=== PATIENT | female | born 1965 | race Caucasian/White ===

== ENCOUNTER 2017-12-29 23:20 | Inpatient (IN) | payer BC ==
[~2017-12-29] VITALS: Ht 157.5 cm; Wt 65.3 kg
[2017-12-29 23:33] VITALS: Ht 157.5 cm; Wt 65.3 kg
[2017-12-30] VITALS (7 sets, daily range): BP systolic 129–175; BP diastolic 83–95
[2017-12-30 00:09] LABS: BASOPHIL % 0.3 % (0-2); PLATELET COUNT 198 x10^3mcL (130-400)
[2017-12-30 00:13] LABS: RED CELL DISTRIBUTION WIDTH 17.4 % (11.5-14.5)
[2017-12-30 00:17] LABS: CALCIUM 9.2 mg/dL (8.5-10.1); CHLORIDE SERUM 105 mmol/L (98-107); CREATININE SERUM 0.6 mg/dL (0.6-1.0); GFR1 > 60 mL/min; GLUCOSE SERUM 128 mg/dL (74-106); POTASSIUM SERUM 3.5 mmol/L (3.5-5.1); SODIUM SERUM 141 mmol/L (136-145)
[2017-12-30 00:22] LABS: ALBUMIN 3.6 g/dL (3.4-5.0); ALKALINE PHOSPHATASE 90 U/L (46-116); ALT/SGPT 20 U/L (14-59); AST/SGOT 17 U/L (15-37); BILIRUBIN TOTAL 0.5 mg/dL (0.20-1.00); TOTAL PROTEIN, SERUM 7.5 g/dL (6.4-8.2)
[2017-12-30 03:46] LABS: MAGNESIUM 2.4 mg/dL (1.8-2.4); PHOSPHOROUS 3.7 mg/dL (2.5-4.9)
[2017-12-30 03:47] LABS: CHOLESTEROL/HDL RATIO 3.3
[2017-12-30 03:56] LABS: FREE T4 1.07 ng/dL (0.76-1.46); FREE THYROXINE INDEX 2.1 ug/dL (1.4-4.5); T4(THYROXINE) 5.6 ug/dL (4.7-13.3)
[2017-12-30 05:20] LABS: microscopic required? NO
[2017-12-30 05:36] LABS: urine erythrocyte NEGATIVE (NEGATIVE)
[2017-12-30 05:45] LABS: AMPHETAMINE QUAL UR NONE DETECTED (NEG <=1000)
[2017-12-30 10:37] LABS: T3 TOTAL 1.17 ng/mL
[2017-12-31 03:39] LABS: BASOPHIL % 0.4 % (0-2); PLATELET COUNT 186 x10^3mcL (130-400)
[2017-12-31 03:43] LABS: RED CELL DISTRIBUTION WIDTH 17.8 % (11.5-14.5)
[2017-12-31 05:33] VITALS: BP 1126/78
[2017-12-31 05:56] LABS: SODIUM SERUM 141 mmol/L (136-145)
[2017-12-31 05:57] LABS: CALCIUM 8.9 mg/dL (8.5-10.1); CARBON DIOXIDE 22.1 mmol/L (21-32); CHLORIDE SERUM 107 mmol/L (98-107); CREATININE SERUM 0.5 mg/dL (0.6-1.0); GFR1 > 60 mL/min; GLUCOSE SERUM 105 mg/dL (74-106); MAGNESIUM 2.3 mg/dL (1.8-2.4); PHOSPHOROUS 4.7 mg/dL (2.5-4.9); POTASSIUM SERUM 3.9 mmol/L (3.5-5.1)
[2017-12-31 10:13] VITALS: BP 146/90
[2017-12-31 18:23] VITALS: BP 134/89
[2017-12-31 22:08] VITALS: BP 145/88
[2018-01-01 05:02] VITALS: BP 135/78
[2018-01-01 06:41] LABS: BASOPHIL % 0.3 % (0-2); PLATELET COUNT 179 x10^3mcL (130-400)
[2018-01-01 06:42] LABS: RED CELL DISTRIBUTION WIDTH 17.6 % (11.5-14.5)
[2018-01-01 06:54] LABS: CALCIUM 8.7 mg/dL (8.5-10.1); CARBON DIOXIDE 24.6 mmol/L (21-32); CHLORIDE SERUM 106 mmol/L (98-107); CREATININE SERUM 0.6 mg/dL (0.6-1.0); GFR1 > 60 mL/min; GLUCOSE SERUM 97 mg/dL (74-106); PHOSPHOROUS 4.3 mg/dL (2.5-4.9); POTASSIUM SERUM 3.6 mmol/L (3.5-5.1); SODIUM SERUM 140 mmol/L (136-145)
[2018-01-01] MEDS ORDERED: TOPROL XL25 MG PO (08:09)
[2018-01-01] MEDS ORDERED: ASPIR 8181 MG PO (08:09)
[2018-01-01] MEDS ORDERED: PLA75 PO (08:09)
[2018-01-01] MEDS ORDERED: NITROGLYCERIN0.4 MG SL (08:09)
[2018-01-01] MEDS ORDERED: LIPITOR80 MG PO (08:09)
[2018-01-01 09:28] VITALS: BP 139/79
[2018-01-01 10:19] VITALS: BP 139/79
== END 2018-01-01 13:14 | disposition home or self-care (01) | DRG 286 ==
LOC: ED 23:20 → DU 12-30 01:34
PROVIDERS: Emergency Medicine; Family Medicine; Internal Medicine Interventional Cardiology
PROC: B2111ZZ Fluoroscopy of Multiple Coronary Arteries using Low Osmolar Contrast (ICD-10-PCS; 2017-12-31)
PROC: B2151ZZ Fluoroscopy of Left Heart using Low Osmolar Contrast (ICD-10-PCS; 2017-12-31)
PROC: 4A023N7 Measurement of Cardiac Sampling and Pressure, Left Heart, Percutaneous Approach (ICD-10-PCS; principal; 2017-12-31 13:00)
DX: I24.9 Acute ischemic heart disease, unspecified (principal); N17.0 Acute kidney failure with tubular necrosis; E78.5 Hyperlipidemia, unspecified; I10 Essential (primary) hypertension; E02 Subclinical iodine-deficiency hypothyroidism; F41.1 Generalized anxiety disorder; I16.0 Hypertensive urgency; E78.2 Mixed hyperlipidemia; R73.03 Prediabetes; Z88.0 Allergy status to penicillin; Z82.49 Family history of ischemic heart disease and other diseases of the circulatory system; Z83.3 Family history of diabetes mellitus; Z84.89 Family history of other specified conditions; Z72.89 Other problems related to lifestyle; I25.10 Atherosclerotic heart disease of native coronary artery without angina pectoris
CPT/HCPCS: CLHCL; 84439; C1760; C1769; C1894; J1644; J2001; J2250; J2405; J3010; J7030; J7040; Q0092; Q9967

== ENCOUNTER 2018-01-30 14:24 | Inpatient (IN) | payer BC ==
[~2018-01-30] VITALS: Ht 157.5 cm; Wt 64.0 kg
[~2018-01-30 14:24] MED LIST: ASPIR 8181 MG PO; LIPITOR80 MG PO; NITROGLYCERIN0.4 MG SL; PLA75 PO; TOPROL XL25 MG PO
[2018-01-30 14:28] VITALS: Ht 157.5 cm; Wt 64.0 kg
[2018-01-30 15:53] LABS: CALCIUM 9.3 mg/dL (8.5-10.1); CARBON DIOXIDE 25.1 mmol/L (21-32); CHLORIDE SERUM 105 mmol/L (98-107); CREATININE SERUM 0.6 mg/dL (0.6-1.0); GFR1 > 60 mL/min; GLUCOSE SERUM 92 mg/dL (74-106); POTASSIUM SERUM 3.6 mmol/L (3.5-5.1); SODIUM SERUM 139 mmol/L (136-145)
[2018-01-30 15:55] LABS: BASOPHIL % 0.6 % (0-2); PLATELET COUNT 184 x10^3mcL (130-400)
[2018-01-30 15:58] LABS: ALBUMIN 3.8 g/dL (3.4-5.0); ALKALINE PHOSPHATASE 87 U/L (46-116); ALT/SGPT 43 U/L (14-59); AST/SGOT 33 U/L (15-37); BILIRUBIN TOTAL 1.14 mg/dL (0.20-1.00); CHOLESTEROL 115 mg/dL (<200); CHOLESTEROL/HDL RATIO 2.3; HDL CHOLESTEROL 50 mg/dL (40-60); TOTAL PROTEIN, SERUM 7.2 g/dL (6.4-8.2); TRIGLYCERIDES 44 mg/dL (<150)
[2018-01-30 16:03] LABS: RED CELL DISTRIBUTION WIDTH 17.6 % (11.5-14.5)
[2018-01-30 16:25] LABS: AMPHETAMINE QUAL UR NONE DETECTED (NEG <=1000)
[2018-01-30 17:29] LABS: microscopic required? NO
[2018-01-30 17:42] LABS: UA SPECIFIC GRAVITY <=1.005 (1.005-1.035); urine erythrocyte NEGATIVE (NEGATIVE)
[2018-01-30 17:52] LABS: MAGNESIUM 2.1 mg/dL (1.8-2.4); PHOSPHOROUS 4.1 mg/dL (2.5-4.9)
[2018-01-30 18:00] LABS: T3 TOTAL 0.81 ng/mL
[2018-01-30 18:01] LABS: FREE T4 1.13 ng/dL (0.76-1.46); FREE THYROXINE INDEX 2.3 ug/dL (1.4-4.5); T4(THYROXINE) 6.1 ug/dL (4.7-13.3)
[2018-01-30 18:09] VITALS: BP 139/83
[2018-01-30 21:22] VITALS: BP 122/79
[2018-01-31 06:02] VITALS: BP 94/60
[2018-01-31 07:21] LABS: BASOPHIL % 0.1 % (0-2); PLATELET COUNT 174 x10^3mcL (130-400)
[2018-01-31 07:22] LABS: RED CELL DISTRIBUTION WIDTH 17.5 % (11.5-14.5)
[2018-01-31 07:42] LABS: CALCIUM 9.1 mg/dL (8.5-10.1); CARBON DIOXIDE 25.4 mmol/L (21-32); CHLORIDE SERUM 106 mmol/L (98-107); CREATININE SERUM 0.6 mg/dL (0.6-1.0); GFR1 > 60 mL/min; GLUCOSE SERUM 87 mg/dL (74-106); MAGNESIUM 2.2 mg/dL (1.8-2.4); PHOSPHOROUS 5.3 mg/dL (2.5-4.9); POTASSIUM SERUM 3.7 mmol/L (3.5-5.1); SODIUM SERUM 140 mmol/L (136-145)
[2018-01-31] MEDS ORDERED: PLA75 PO (08:25)
[2018-01-31] MEDS ORDERED: ASPIR 8181 MG PO (08:26)
[2018-01-31] MEDS ORDERED: LIPITOR80 MG PO (08:26)
[2018-01-31] MEDS ORDERED: NITROGLYCERIN0.4 MG SL (08:26)
[2018-01-31] MEDS ORDERED: ZES5 PO (08:27)
[2018-01-31 08:42] VITALS: BP 113/71
[2018-01-31 08:53] LABS: IRON 33 ug/dL (50-170); TOTAL IRON BINDING CAPACITY 259 ug/dL (250-450)
[2018-01-31 09:17] LABS: RED BLOOD CELLS 4.68 M/mm3 (4.10-5.10)
[2018-01-31 12:09] VITALS: BP 111/64
[2018-01-31 13:25] VITALS: BP 111/64
[2018-01-31] MEDS ORDERED: CARCD120 PO (13:52)
== END 2018-01-31 15:28 | disposition home or self-care (01) | DRG 302 ==
LOC: ED 14:24 → DU 17:13
PROVIDERS: Emergency Medicine; Family Medicine
DX: I25.111 Atherosclerotic heart disease of native coronary artery with angina pectoris with documented spasm (principal); N17.0 Acute kidney failure with tubular necrosis; I08.1 Rheumatic disorders of both mitral and tricuspid valves; F41.1 Generalized anxiety disorder; E78.5 Hyperlipidemia, unspecified; R73.03 Prediabetes; Z88.0 Allergy status to penicillin; Z82.49 Family history of ischemic heart disease and other diseases of the circulatory system; Z83.3 Family history of diabetes mellitus
CPT/HCPCS: 83880; 84439; J1885; J2550; J7030; Q0092

== ENCOUNTER 2018-02-03 20:21 | Emergency (ER) | payer BC ==
[~2018-02-03] VITALS: Ht 157.5 cm; Wt 65.3 kg
[~2018-02-03 20:21] MED LIST changes: +CARCD120 PO; +ZES5 PO
[2018-02-03 20:25] VITALS: Ht 157.5 cm; Wt 65.3 kg
[2018-02-04 00:15] VITALS: BP 148/94
== END 2018-02-04 00:15 | disposition home or self-care (01) ==
LOC: ED 20:21
DX: I20.8 Other forms of angina pectoris (principal); E78.00 Pure hypercholesterolemia, unspecified; Z88.0 Allergy status to penicillin